=== PATIENT | male | born 1945 | race Caucasian/White ===

== ENCOUNTER 2019-09-26 09:41 | Emergency (ER) | payer OTHER, MEDICARE, BC ==
[2019-09-26] MEDS ORDERED: Albuterol 0.083% 2.5 MG/3 ML Neb Soln NEB ONE (09:53)
[2019-09-26 10:03] VITALS: BP 151/54
[2019-09-26 10:21] VITALS: PULSE 66
[2019-09-26 10:24] LABS: CHLORIDE,CL 105 mmol/L (101-111); SODIUM,NA 137 mmol/L (135-145)
--- NOTE | 2019-09-26 10:36 | EDM.PDOC ---
<Floyd Freeman - Last Filed: 09/26/19 12:19> ED HPI GENERAL MEDICAL PROBLEM - General Chief Complaint: Respiratory Problem Stated Complaint: CANT BREATH ARTIF VALVE IN HEART Time Seen by Provider: 09/26/19 10:31 Source of Information: Reports: Patient, Family (), RN, RN Notes Reviewed History Limitations: Reports: No Limitations - History of Present Illness INITIAL COMMENTS - FREE TEXT/NARRATIVE: Patient presents to the ER for complaints of shortness of breath X 3-4 days. He has used his inhaler at home the last 2 days with little relief and reports not using his inhaler at home this morning. Patient does not have a nebulizer at home. He states he has a chronic dry cough. He states he quit smoking over a year ago but his still smokes and he gets second hand smoke exposure with that. SOB has been getting progressively worse over the last few days now. Patient does not have any other symptoms at this time. Onset: Gradual Duration: Day(s): (3-4 days) Location: Reports: Chest Severity: Mild Improves with: Reports: None Worsens with: Reports: None Associated Symptoms: Reports: Cough, Shortness of Breath. Denies: cough w sputum, Fever/Chills, Headaches, Loss of Appetite, Nausea/Vomiting, Syncope, Weakness - Related Data Allergies Allergy/AdvReac Type Severity Reaction Status Date / Time No Known Allergies Allergy Verified 09/26/19 10:04 Home Meds: Home Meds Tamsulosin [Flomax] 0.4 mg PO BEDTIME 02/24/17 [History] atorvaSTATin [Lipitor] 20 mg PO DAILY 02/24/17 [History] Acetaminophen 650 mg PO Q6HR PRN 08/20/18 [History] Albuterol [Ventolin HFA] 2 puff IH Q4HR PRN 08/20/18 [History] Cholecalciferol (Vitamin D3) [Vitamin D3] 1,000 units PO DAILY 08/20/18 [History ] Docusate Sodium [Colace] 200 mg PO DAILY PRN 08/20/18 [History] Metoprolol Tartrate [Lopressor] 50 mg PO BID 08/20/18 [History] Aspirin [Ecotrin EC] 325 mg PO 09/26/19 [History] Losartan [Cozaar] 100 mg PO DAILY 02/24/20 [History] Past Medical History HEENT History: Reports: Cataract, Impaired Vision Other HEENT History: wears glasses Cardiovascular History: Reports: Heart Valve Replacement Other Cardiovascular History: 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 Respiratory History: Reports: COPD Gastrointestinal History: Reports: None Genitourinary History: Reports: Prostate Disorder Musculoskeletal History: Reports: Back Pain, Chronic Neurological History: Reports: None Psychiatric History: Reports: None Endocrine/Metabolic History: Reports: None Hematologic History: Reports: Polycythemia Immunologic History: Reports: None Oncologic (Cancer) History: Reports: None Dermatologic History: Reports: None - Infectious Disease History Infectious Disease History: Reports: Chicken Pox, Measles, Mumps - Past Surgical History Head Surgeries/Procedures: Reports: None HEENT Surgical History: Reports: None Respiratory Surgical History: Reports: None GI Surgical History: Reports: None Male Surgical History: Reports: None Endocrine Surgical History: Reports: None Neurological Surgical History: Reports: Lumbar Spine Other Musculoskeletal Surgeries/Procedures:: states back surgery 2006 Social & Family History - Family History Family Medical History: Noncontributory - Tobacco Use Smoking Status *Q: Former Smoker Years of Tobacco use: 50 Packs/Tins Daily: 2 Used Tobacco, but Quit: Yes Month/Year Tobacco Last Used: 09/16/2018 Second Hand Smoke Exposure: No - Caffeine Use Caffeine Use: Reports: Coffee, Soda - Recreational Drug Use Recreational Drug Use: No ED ROS GENERAL - Review of Systems Review Of Systems: Comprehensive ROS is negative, except as noted in HPI. ED EXAM, GENERAL - Physical Exam Exam: See Below Exam Limited By: No Limitations General Appearance: Alert, WD/WN, No Apparent Distress Respiratory/Chest: No Respiratory Distress, No Accessory Muscle Use, Chest Non- Tender, Decreased Breath Sounds, Wheezing (in all lung fatima). No: Crackles, Rales Cardiovascular: Normal Peripheral Pulses, Regular Rate, Rhythm, No Edema, No Gallop, No JVD, No Murmur, No Rub Extremities: Normal Inspection, Normal Range of Motion, Non-Tender, Normal Capillary Refill, No Pedal Edema Neurological: Alert, Oriented, CN II-XII Intact, Normal Cognition, Normal Gait, Normal Reflexes, No Motor/Sensory Deficits Psychiatric: Normal Affect, Normal Mood Skin Exam: Warm, Dry, Intact, Normal Color, No Rash Lymphatic: No Adenopathy Course - Vital Signs Last Recorded V/S: Last Vital Signs Temp 37.0 C 09/26/19 09:51 Pulse 66 09/26/19 09:54 Resp 24 H 09/26/19 09:51 BP 151/54 H 09/26/19 09:51 Pulse Ox 92 L 09/26/19 09:54 - Orders/Labs/Meds Orders: Active Orders 24 hr Category Date Time Status EKG Documentation Completion [RC] URGENT Care 09/26/19 09:46 Active RT Aerosol Therapy [RC] ASDIRECTED Care 09/26/19 09:54 Active Labs: Laboratory Tests 09/26/19 09/26/19 09/26/19 Range/Units 09:57 09:57 09:57 WBC 12.2 H (5.0-10.0) 10^3/uL RBC 5.17 (4.6-6.2) 10^6/uL Hgb 15.5 (14.0-18.0) g/dL Hct 44.4 (40.0-54.0) % MCV 85.9 (80-100) fL MCH 30.0 (27.0-34.0) pg MCHC 34.9 (33.0-35.0) g/dL Plt Count 176 (150-450) 10^3/uL Neut % (Auto) 68.0 (42.2-75.2) % Lymph % (Auto) 12.7 L (20.5-50.1) % [place] % (Auto) 10.1 H (2-8) % Eos % (Auto) 8.6 H (1.0-3.0) % Baso % (Auto) 0.6 (0.0-1.0) % PT 9.9 (9.0-12.0) SEC INR 1.0 (0.9-1.2) D-Dimer, Quantitative 721 H (0-400) ng/mL Sodium 137 (135-145) mmol/L Potassium 4.0 (3.6-5.0) mmol/L Chloride 105 (101-111) mmol/L Carbon Dioxide 27.0 (21.0-31.0) mmol/L Anion Gap 9.0 BUN 29 H (7-18) mg/dL Creatinine 1.5 H (0.6-1.3) mg/dL Est Cr Clr Drug Dosing 33.72 mL/min Estimated GFR (MDRD) 46 BUN/Creatinine Ratio 19.33 Glucose 103 (74-105) mg/dL Calcium 8.8 (8.4-10.2) mg/dl Total Bilirubin 1.5 H (0.2-1.0) mg/dL AST 29 (10-42) IU/L ALT 16 (10-60) IU/L Alkaline Phosphatase 82 (42-121) IU/L Troponin I < 0.02 (0.00-0.02) ng/ml Total Protein 6.9 (6.7-8.2) g/dl Albumin 4.0 (3.2-5.5) g/dl Globulin 2.9 Albumin/Globulin Ratio 1.38 Meds: Medications Discontinued Medications Generic Name Dose Route Start Last Admin Trade Name Freq PRN Reason Stop Dose Admin Albuterol 2.5 mg 09/26/19 09:53 09/26/19 10:20 Proventil Neb Soln NEB 09/26/19 09:54 2.5 mg ONETIME ONE Administration Departure - Departure Time of Disposition: 12:19 Disposition: Home, Self-Care 01 Condition: Good Clinical Impression: COPD exacerbation - Discharge Information *PRESCRIPTION DRUG MONITORING PROGRAM REVIEWED*: Not Applicable *COPY OF PRESCRIPTION DRUG MONITORING REPORT IN PATIENT SANDHYA: Not Applicable Instructions: Chronic Obstructive Pulmonary Disease Exacerbation, [id number] , Chronic Obstructive Pulmonary Disease, [id number] Forms: ED Department Discharge Additional Instructions: Rx: Prednisone Rx: Azithromycin Take the prednisone and azithromycin as directed for the full course. Follow-up with primary care provider for nebulizer treatments for at home use. Continue to use your inhaler at home as needed for shortness of breath. If symptoms worsen return to ER or clinic for further evaluation. Sepsis Event Note - Evaluation Sepsis Screening Result: No Definite Risk - Focused Exam Vital Signs: Vital Signs Temp Pulse Resp BP Pulse Ox Pulse Ox 09/26/19 09:54 66 92 L 09/26/19 09:51 37.0 C 68 24 H 151/54 H 93 L Date Exam was Performed: 09/26/19 Time Exam was Performed: 12:19 - My Orders Last 24 Hours: My Active Orders 09/26/19 09:46 EKG Documentation Completion [RC] URGENT 09/26/19 09:54 RT Aerosol Therapy [RC] ASDIRECTED - Assessment/Plan Last 24 Hours: My Active Orders 09/26/19 09:46 EKG Documentation Completion [RC] URGENT 09/26/19 09:54 RT Aerosol Therapy [RC] ASDIRECTED <Ramesh Jones M - Last Filed: 09/26/19 12:25> Course - Re-Assessments/Exams Free Text/Narrative Re-Assessment/Exam: 09/26/19 12:25 I have examined the patient. I have discussed findings and treatment plan with the PA student. I agree with the assessment and plan in the following students note. Sepsis Event Note - Focused Exam Date Exam was Performed: 09/26/19 Time Exam was Performed: 12:25
--- NOTE | 2019-09-26 12:06 | CR ---
EXAMINATION: Chest 2V SEX: Male AGE: 74 years CLINICAL HISTORY: 74-year-old male increased shortness of breath (SOB). This hypertensive smoker reported to have "no acute cardiopulmonary abnormality" on CT exam 19 October 2017. INTERPRETATION: 1. Sternotomy wires and external manager monitoring leads. 2. Normal cardiac silhouette (size and configuration) unchanged since October 2017. 3. No new pulmonary vascular congestion, cephalization of flow, alveolar edema or dependent pleural effusion. 4. No new lung mass, hilar lymphadenopathy or focal lobar pneumonia. 5. No atelectasis/collapse. 6. No pneumothorax. CONCLUSION: No acute cardiopulmonary abnormality. Evidence of thoracic surgery.
== END 2019-09-26 12:30 | disposition home or self-care (01) ==
LOC: DL.ED 09:41
DX: J44.1 Chronic obstructive pulmonary disease with (acute) exacerbation (principal); Z87.891 Personal history of nicotine dependence; Z79.899 Other long term (current) drug therapy
CPT/HCPCS: 36415; 71046; 80053; 84484; 85025; 85379; 85610; 93005; 94640; 99284; 99285-25; J7613-GY

== ENCOUNTER 2023-03-20 09:03 | Observation (INO) | payer MEDICARE, BC ==
[2023-03-20] MEDS ORDERED: Sodium Chloride 0.9% 10 ML Syringe FLUSH PRN ×2 (09:31→12:22)
[2023-03-20 09:40] LABS: BASOPHILS PERCENT AUTO 0.2 % (0.0-1.0); EOSINOPHILS PERCENT AUTO 0.8 % (1.0-3.0); HEMATOCRIT 47.1 % (40.0-54.0); HEMOGLOBIN 15.8 g/dL (14.0-18.0); LYMPHOCYTES PERCENT AUTO 10.2 % (20.5-50.1); MEAN CORPUSCULAR HEMOGLOBIN 30.3 pg (27.0-34.0); MEAN CORPUSCULAR HGB CONC 33.5 g/dL (33.0-35.0); MEAN CORPUSCULAR VOLUME 90.2 fL (80-100); MONOCYTES PERCENT AUTO 7.8 % (2-8); PLATELET COUNT,PLT 222 10^3/uL (150-450); RED BLOOD CELL COUNT 5.22 10^6/uL (4.6-6.2); WHITE BLOOD CELL COUNT,WBC 18.6 10^3/uL (5.0-10.0)
[2023-03-20 09:49] LABS: ALBUMIN 3.1 g/dL (3.4-5.0); ANION GAP 11.3 mEq/L (7-13); BILIRUBIN TOTAL 0.8 mg/dL (0.2-1.0); CALCIUM 8.8 mg/dL (8.5-10.1); CREATININE 1.93 mg/dL (0.70-1.30); EST CRCL DRUG DOSING (CG) 23.97 mL/min; POTASSIUM,K 4.3 mmol/L (3.5-5.1); PROTEIN TOTAL,TP 6.7 g/dL (6.4-8.2)
[2023-03-20 09:52] LABS: A/G RATIO 0.86
[2023-03-20] MEDS ORDERED: Iopamidol 612 MG/ML 100 ML Bottle IVPUSH ONE (09:57)
[2023-03-20] MEDS ORDERED: Piperacillin/Tazobactam 3.375 GM in Sodium Chloride 0.9% 100 ML IV ONE (11:07)
[2023-03-20] MEDS ORDERED: Sennosides/Docusate Sodium 50-8.6 MG Tab PO PRN (12:22)
[2023-03-20] MEDS ORDERED: HYDROmorphone 0.5 MG/0.5 ML Syringe IVPUSH PRN (12:22)
[2023-03-20] MEDS ORDERED: Ondansetron 4 MG/2 ML SDV IVPUSH PRN (12:22)
[2023-03-20] MEDS ORDERED: Acetaminophen/oxyCODONE 325-5 MG Tab PO PRN (12:22)
[2023-03-20] MEDS ORDERED: Polyethylene Glycol 3350 Powder 17 GM Packet PO PRN (12:22)
[2023-03-20] MEDS ORDERED: Albuterol/Ipratropium 3.0-0.5 MG/3 ML Neb Soln NEB PRN (12:22)
[2023-03-20] MEDS ORDERED: Magnesium Hydroxide 400 MG/5 ML Susp 30 ML Cup PO PRN (12:22)
[2023-03-20] MEDS ORDERED: Acetaminophen 325 MG Tab PO PRN (12:22)
[2023-03-20] MEDS ORDERED: Pantoprazole 40 MG Vial IVPUSH ONE (12:25)
[2023-03-20] MEDS ORDERED: Metoprolol Tartrate 5 MG/5 ML SDV IVPUSH PRN (12:26)
[2023-03-20] MEDS ORDERED: hydrALAZINE 20 MG/ML SDV IVPUSH PRN (12:26)
[2023-03-20] MEDS ORDERED: Piperacillin/Tazobactam 3.375 GM in Sodium Chloride 0.9% 100 ML IV SCH (18:00)
[2023-03-20] MEDS: Piperacillin/Tazobactam 2.25 GM in Sodium Chloride 0.9% 50 ML IV SCH ×2 (18:47→23:20)
[2023-03-20] MEDS: Metoprolol Tartrate 25 MG Tab PO SCH (20:08)
[2023-03-20] MEDS: Saccharomyces Boulardii (Probiotic) 250 MG Cap PO SCH (20:08)
[2023-03-20] MEDS: Dextrose 5%-0.9% NaCl 1,000 ML IV SCH (20:10)
[2023-03-20] MEDS: Tamsulosin 0.4 MG Cap.ER PO SCH (20:10)
[2023-03-20] MEDS: Sodium Chloride 0.9% 10 ML Syringe FLUSH SCH (20:15)
[2023-03-21] MEDS: Piperacillin/Tazobactam 2.25 GM in Sodium Chloride 0.9% 50 ML IV SCH ×3 (05:39→18:37)
[2023-03-21 06:14] LABS: BASOPHILS PERCENT AUTO 0.3 % (0.0-1.0); EOSINOPHILS PERCENT AUTO 1.6 % (1.0-3.0); HEMATOCRIT 42.7 % (40.0-54.0); MEAN CORPUSCULAR HEMOGLOBIN 29.6 pg (27.0-34.0); MEAN CORPUSCULAR HGB CONC 32.8 g/dL (33.0-35.0); MEAN CORPUSCULAR VOLUME 90.3 fL (80-100); MONOCYTES PERCENT AUTO 8.3 % (2-8); NEUTROPHILS PERCENT AUTO 75.8 % (42.2-75.2); PLATELET COUNT,PLT 183 10^3/uL (150-450); RED BLOOD CELL COUNT 4.73 10^6/uL (4.6-6.2); WHITE BLOOD CELL COUNT,WBC 11.8 10^3/uL (5.0-10.0)
[2023-03-21 06:35] LABS: ALBUMIN 2.7 g/dL (3.4-5.0); ANION GAP 12.8 mEq/L (7-13); BILIRUBIN TOTAL 0.6 mg/dL (0.2-1.0); BUN/CREATININE RATIO 14.1 (No establ ref range); C-REACTIVE PROTEIN 8.7 mg/dL (0.0-0.9); CALCIUM 8.1 mg/dL (8.5-10.1); CREATININE 1.63 mg/dL (0.70-1.30); EST CRCL DRUG DOSING (CG) 28.38 mL/min; MAGNESIUM 2.2 mg/dL (1.8-2.4); POTASSIUM,K 3.8 mmol/L (3.5-5.1)
[2023-03-21 06:36] LABS: A/G RATIO 0.82
[2023-03-21] MEDS: Dextrose 5%-0.9% NaCl 1,000 ML IV SCH (08:07)
[2023-03-21] MEDS: Saccharomyces Boulardii (Probiotic) 250 MG Cap PO SCH ×2 (08:08→20:49)
[2023-03-21] MEDS: Pantoprazole 40 MG Vial IVPUSH SCH (08:08)
[2023-03-21] MEDS: Metoprolol Tartrate 25 MG Tab PO SCH ×2 (08:08→20:48)
[2023-03-21] MEDS: Sodium Chloride 0.9% 10 ML Syringe FLUSH SCH ×2 (08:12→20:48)
[2023-03-21] MEDS: Cyclobenzaprine 10 MG Tab PO SCH (20:49)
[2023-03-21] MEDS: Tamsulosin 0.4 MG Cap.ER PO SCH (20:49)
[2023-03-21] MEDS: Formoterol/Mometasone 200-5 MCG 8.8 GM Inhaler IH SCH (20:54)
[2023-03-21] MEDS ORDERED: Non-Formulary Medication 1 Each (Fluticasone Propion/Salmeterol [Fluticasone-Salmeterol 25 IH SCH (21:00)
[2023-03-22] MEDS: Piperacillin/Tazobactam 2.25 GM in Sodium Chloride 0.9% 50 ML IV SCH ×5 (02:17→17:17)
[2023-03-22 06:03] LABS: BASOPHILS PERCENT AUTO 0.3 % (0.0-1.0); EOSINOPHILS PERCENT AUTO 2.6 % (1.0-3.0); HEMATOCRIT 42.2 % (40.0-54.0); HEMOGLOBIN 14.1 g/dL (14.0-18.0); LYMPHOCYTES PERCENT AUTO 17.9 % (20.5-50.1); MEAN CORPUSCULAR HEMOGLOBIN 30.1 pg (27.0-34.0); MEAN CORPUSCULAR HGB CONC 33.4 g/dL (33.0-35.0); MONOCYTES PERCENT AUTO 8.1 % (2-8); NEUTROPHILS PERCENT AUTO 71.1 % (42.2-75.2); PLATELET COUNT,PLT 188 10^3/uL (150-450); RED BLOOD CELL COUNT 4.69 10^6/uL (4.6-6.2); WHITE BLOOD CELL COUNT,WBC 8.9 10^3/uL (5.0-10.0)
[2023-03-22 06:20] LABS: ALBUMIN 2.7 g/dL (3.4-5.0); ANION GAP 12.1 mEq/L (7-13); BILIRUBIN TOTAL 0.5 mg/dL (0.2-1.0); BUN/CREATININE RATIO 8.8 (No establ ref range); C-REACTIVE PROTEIN 3.7 mg/dL (0.0-0.9); CALCIUM 8.3 mg/dL (8.5-10.1); CREATININE 1.36 mg/dL (0.70-1.30); EST CRCL DRUG DOSING (CG) 34.01 mL/min; MAGNESIUM 1.8 mg/dL (1.8-2.4); POTASSIUM,K 4.1 mmol/L (3.5-5.1); PROTEIN TOTAL,TP 5.9 g/dL (6.4-8.2)
[2023-03-22 06:22] LABS: A/G RATIO 0.84
[2023-03-22] MEDS ORDERED: Aspirin 81 MG Tab.EC PO SCH (09:00)
[2023-03-22] MEDS ORDERED: amLODIPine 5 MG Tab PO SCH (09:00)
[2023-03-22] MEDS: Metoprolol Tartrate 25 MG Tab PO SCH (09:48)
[2023-03-22] MEDS: Saccharomyces Boulardii (Probiotic) 250 MG Cap PO SCH (09:49)
[2023-03-22] MEDS: Cyclobenzaprine 10 MG Tab PO SCH (09:49)
[2023-03-22] MEDS: Formoterol/Mometasone 200-5 MCG 8.8 GM Inhaler IH SCH (09:49)
[2023-03-22] MEDS: Pantoprazole 40 MG Vial IVPUSH SCH (09:49)
[2023-03-22] MEDS: Sodium Chloride 0.9% 10 ML Syringe FLUSH SCH (09:50)
[2023-03-22 11:59] VITALS: PULSE 60
[2023-03-22 17:27] VITALS: BP 130/63
== END 2023-03-22 17:25 | disposition home or self-care (01) ==
LOC: DL.ED 09:03 → DL.MS 11:20 → UNDOADMOB 11:59 → UNDODISOB 03-22 17:25
PROVIDERS: ADMIT Internal Medicine; ATTEND Internal Medicine
DX: K52.9 Noninfective gastroenteritis and colitis, unspecified (principal); K80.20 Calculus of gallbladder without cholecystitis without obstruction; K57.30 Diverticulosis of large intestine without perforation or abscess without bleeding; I10 Essential (primary) hypertension; E78.5 Hyperlipidemia, unspecified; I35.0 Nonrheumatic aortic (valve) stenosis; J44.9 Chronic obstructive pulmonary disease, unspecified; M51.36 Other intervertebral disc degeneration, lumbar region; M47.814 Spondylosis without myelopathy or radiculopathy, thoracic region; E78.00 Pure hypercholesterolemia, unspecified; E66.9 Obesity, unspecified; E55.9 Vitamin D deficiency, unspecified; I71.40 Abdominal aortic aneurysm, without rupture, unspecified; D72.819 Decreased white blood cell count, unspecified; N17.9 Acute kidney failure, unspecified; E88.09 Other disorders of plasma-protein metabolism, not elsewhere classified; Z68.30 Body mass index [BMI] 30.0-30.9, adult; Z79.899 Other long term (current) drug therapy
CPT/HCPCS: 36415; 74177; 80053; 82272; 83605; 83735; 85025; 86140; 87040; 96361; 96365; 96366; 96375; 96376; 99284; 99285; A9270-GY; C9113; G0378; J2543; J3490; J7042; Q9967